=== PATIENT | male | born 2000 | race Caucasian/White ===

== ENCOUNTER 2022-05-02 19:13 | Emergency (ER) | payer SELFPAY ==
[2022-05-02 19:11] LABS: PTT,PARTIAL THROMBOPLSTIN TIME 23.4 SEC (22.0-34.0)
[2022-05-02 19:13] LABS: ANION GAP 29.4 mEq/L (7-13); CHLORIDE,CL 99 mmol/L (98-107); SODIUM,NA 140 mmol/L (136-145)
[~2022-05-02 19:13] MED LIST: Diphtheria,Pertussis(Acell),Tetanus Vaccine 0.5 ML Syringe IM ONE; Haloperidol Lactate 5 MG/ML SDV IM ONE; Haloperidol Lactate 5 MG/ML SDV ONE; LORazepam 2 MG/ML SDV IM ONE; LORazepam 2 MG/ML SDV ONE; Sodium Chloride 0.9% 1,000 ML IV ONE; Sodium Chloride 0.9% 10 ML Syringe FLUSH PRN; diphenhydrAMINE 50 MG/ML SDV IVPUSH ONE; diphenhydrAMINE 50 MG/ML SDV ONE
[2022-05-02] MEDS ORDERED: Dexmedetomidine 200 MCG/2 ML SDV IV ONE (19:14)
[2022-05-02] MEDS ORDERED: Rocuronium 100 MG/10 ML MDV IV ONE (19:14)
[2022-05-02] MEDS ORDERED: propofoL 100 ML IV ONE (19:14)
[2022-05-02] MEDS ORDERED: Sodium Chloride 0.9% 10 ML Syringe IV ONE (19:14)
[2022-05-02] MEDS ORDERED: Phenylephrine 1% 10 MG/ML SDV IV ONE (19:14)
[2022-05-02] MEDS ORDERED: EPINEPHrine 1 MG/ML SDV IV ONE (19:14)
[2022-05-02] MEDS ORDERED: Ketamine 500 mg/10 ML MDV IV ONE (19:14)
[2022-05-02] MEDS ORDERED: Succinylcholine 200 MG/10 ML MDV IV ONE (19:14)
[2022-05-02] MEDS ORDERED: Propofol 200 MG/20 ML SDV IV ONE (19:14)
[2022-05-02 19:18] LABS: ESTIMATED GFR 62 mL/min (>=60)
[2022-05-02] MEDS ORDERED: Sodium Chloride 0.9% 1,000 ML IV ONE (19:30)
[2022-05-02 20:23] LABS: AMPHETAMINES,URINE POSITIVE (NEGATIVE); BARBITURATES,URINE NEGATIVE (NEGATIVE); BENZODIAZEPINE,URINE NEGATIVE (NEGATIVE); MDMA (ECSTASY), URINE POSITIVE (NEGATIVE); METHADONE,URINE NEGATIVE (NEGATIVE); METHAMPHETAMINES,URINE POSITIVE (NEGATIVE); OPIATES,URINE NEGATIVE (NEGATIVE); OXYCODONE,URINE NEGATIVE (NEGATIVE); PHENCYCLIDINE,URINE NEGATIVE (NEGATIVE); TCA,URINE NEGATIVE (NEGATIVE)
[2022-05-02] MEDS ORDERED: Midazolam 1 MG/ML 2 ML SDV IVPUSH ONE (20:54)
[2022-05-02] MEDS ORDERED: Midazolam 1 MG/ML 2 ML SDV ONE (20:55)
== END 2022-05-02 21:13 | disposition critical access hospital (66) ==
LOC: DL.ED 19:13
DX: S71.132A Puncture wound without foreign body, left thigh, initial encounter (principal); S71.131A Puncture wound without foreign body, right thigh, initial encounter; W32.0XXA Accidental handgun discharge, initial encounter; Y92.009 Unspecified place in unspecified non-institutional (private) residence as the place of occurrence of the external cause
CPT/HCPCS: 31500; 36415; 43752; 51702; 71045; 73560-LT; 73560-RT; 80053; 80305-QW; 80307; 85025; 85610; 85730; 86803; 86850; 86900; 86901; 87340; 87389; 96361; 96372; 96374; 99285-25; J0171; J0330; J1200; J1630; J2060; J2370; J2704; J3490; J7030

== ENCOUNTER 2022-05-06 09:23 | Emergency (ER) | payer OTHER ==
[2022-05-06] MEDS ORDERED: Ibuprofen 400 MG Tab PO ONE (09:47)
== END 2022-05-06 11:57 ==
LOC: DL.ED 09:23
DX: M79.661 Pain in right lower leg (principal); M79.662 Pain in left lower leg; M79.89 Other specified soft tissue disorders; S81.831D Puncture wound without foreign body, right lower leg, subsequent encounter; S81.832D Puncture wound without foreign body, left lower leg, subsequent encounter; F17.210 Nicotine dependence, cigarettes, uncomplicated
CPT/HCPCS: 93970; 99283; A9270